=== PATIENT | male | born 1980 | race Caucasian/White ===

== ENCOUNTER → 2017-04-17 | Outpatient (CLI) | payer OTHER ==
[~2017-04-17] MED LIST: AMOXI
== END ==
LOC: LAB 14:36
PROVIDERS: ATTEND Family Medicine
DX: R06.02 Shortness of breath (principal)
CPT/HCPCS: 36415; 85379

== ENCOUNTER 2021-06-03 20:31 | Emergency (ER) | payer OTHER ==
[~2021-06-03] VITALS: Ht 193 cm; Wt 90.7 kg
--- NOTE | 2021-06-03 22:05 | Diagnostic Imaging Report ---
EXAMINATION: Left foot radiographs, 3 views. COMPARISON: None. HISTORY: 41-year-old male, left foot pain. Injury playing basketball. FINDINGS: There are displaced fractures of the metatarsal necks of the third and fourth metatarsals. The distal fracture fragments are displaced laterally by 4 mm. There is no intra-articular fracture extension. There is also a mildly displaced fracture of the distal metadiaphysis of the second metatarsal. There is no identified radiopaque foreign body. IMPRESSION: Displaced fractures of the third and fourth metatarsal necks and very mildly displaced fracture of the distal metadiaphysis of the second metatarsal. Dictated by: Dictated on workstation # [id number]
--- NOTE | 2021-06-03 22:17 | ED Lower Extremity ---
General Chief Complaint: Lower Extremity Stated Complaint: LEFT FOOT INJURY Nursing Triage Note: PT PRESENTS TO THE ED, STATES ONE HOUR AGO HE WAS PLAYING BASKETBALL, WENT FOR A LAYUP, FELT A POP IN HIS LEFT FOOT, IS NOW TENDERR TO TOUCH TO THE DORSAL SIDE OF THE FOOT AND STATES HE CANNOT WIGGLE HIS MIDDLE TWO TOES WELL Source: patient Exam Limitations: no limitations History of Present Illness Date Seen by Provider: Jun 03, 2021 Allergies and Home Medications Allergies Coded Allergies: No Known Drug Allergies (Verified Allergy, Unknown, 11/24/07) Past Fkipytv-Snzqdy-Vjbmio Hx Patient Social History Tobacco Use?: No Substance use?: No Alcohol Use?: No Immunizations Up To Date Influenza Vaccine Up-to-Date: Yes; Up-to-Date Past Medical History Reproductive Disorders: No Physical Exam Vital Signs Vital Signs - First Documented 06/03/21 21:02 Temp 36.9 Pulse 90 Resp 18 B/P (MAP) 122/77 (92) Pulse Ox 97 O2 Delivery Room Air Capillary Refill : Less Than 3 Seconds Height, Weight, BMI Height: '" Weight: lbs. oz. kg; 24.00 BMI Method: Progress/Results/Core Measures Results/Orders My Orders Orders - JE[facility] [employer] Foot, Left, 3 Views (06/03/21 21:14) Vital Signs/I&O 06/03/21 21:02 Temp 36.9 Pulse 90 Resp 18 B/P (MAP) 122/77 (92) Pulse Ox 97 O2 Delivery Room Air Blood Pressure Mean: 92 Departure Impression Primary Impression: Metatarsal fracture Disposition: 01 HOME, SELF-CARE Condition: Improved Departure-Patient Inst. Decision time for Depature: 22:20 Referrals: NO,LOCAL PHYSICIAN (PCP/Family) Primary Care Physician Patient Instructions: Foot Fracture (DC) Add. Discharge Instructions: Plan: 1. Use crutches when ambulating, limit weight bearing to your affected foot. 2. May use Tylenol as needed for pain. May use Hydrocodone as needed for breakthrough pain as directed. 3. Use ice 20 minutes 4-6x a day for the next 72 hours. 4. Keep foot elevated above your heart as much as possible to reduce swelling. 5. Follow up with [facility]ho of your choice. 6. Return to ER for any new, concerning, or worsening symptoms. All discharge instructions reviewed with patient and/or family. Voiced understanding. Scripts Hydrocodone/Acetaminophen (Hydrocodone-Acetamin 5-325 mg) 1 Each Tablet 1 TAB PO Q6H PRN for PAIN-MODERATE (5-7), #20 TAB 0 Refills Prov: [facility] [employer] 06/03/[address] [employer] Jun 03, 2021 22:17
[2021-06-03] MEDS ORDERED: ACHD5005 PO (22:24)
[2021-06-03] MEDS ORDERED: HYDROcodone/APAP 5 MG/325 MG (LORTAB) TAB PO ONE (22:30)
[2021-06-03 23:15] VITALS: BP 122/77
== END 2021-06-03 23:17 | disposition home or self-care (01) ==
LOC: EDUNIT# 20:31 → ER 20:33
DX: S92.332A Displaced fracture of third metatarsal bone, left foot, initial encounter for closed fracture (principal); S92.342A Displaced fracture of fourth metatarsal bone, left foot, initial encounter for closed fracture; S92.322A Displaced fracture of second metatarsal bone, left foot, initial encounter for closed fracture; X50.1XXA Overexertion from prolonged static or awkward postures, initial encounter; Y93.67 Activity, basketball
CPT/HCPCS: 73630; 99283; L2114

== ENCOUNTER → 2022-05-10 | Outpatient (CLI) | payer BC, OTHER ==
[~2022-05-10] MED LIST changes: +ACHD5005 PO
--- NOTE | 2022-05-10 08:44 | Diagnostic Imaging Report ---
PROCEDURE: US Hepatic (Liver). TECHNIQUE: Multiple real-time grayscale images were obtained over the right upper quadrant in various projections. INDICATION: Liver mass. There are no prior studies available for comparison. Liver measures 15 cm in size. The portal vein is patent and shows normal direction of flow. There is a circumscribed hyperechoic mass right lobe of the liver measuring 13 mm in size. This may represent a hemangioma. No other liver masses are seen. Gallbladder is without stones or sludge. No wall thickening or biliary ductal dilatation is seen. Pancreas unremarkable. Aorta is nonaneurysmal. IVC is patent. Right kidney is without calculi or hydronephrosis. In addition, sonographic interrogation of the areas of palpable lump in the anterior abdominal wall were evaluated. 2 different lesions were visualized just below the skin surface. Ovoid, circumscribed isoechoic mass measures 2.8 x 1.1 x 2.3 cm. 2nd similar-appearing lesion measures 2.3 x 1.0 x 1.97 m. These have the appearance of lipomas. IMPRESSION: 1. Echogenic liver lesion, suggestive of a hemangioma. 2. Abdominal wall subcutaneous nodules most suggestive of lipomas. Dictated by: Dictated on workstation # [id number]
== END ==
LOC: RAD 07:13
PROVIDERS: ATTEND Family Medicine
DX: D18.03 Hemangioma of intra-abdominal structures (principal)
CPT/HCPCS: 76705